=== PATIENT | male | born 1955 | race American Indian/Alaskan Native ===

== ENCOUNTER 2017-12-02 09:39 | Day surgery (SDC) | payer MEDICARE, MEDICAID ==
[2017-01-08 12:51] VITALS: BMI 33.6
[2017-12-02] MEDS ORDERED: Lidocaine 2% MPF (5 ml) Inj ONE (11:21)
[2017-12-02] MEDS ORDERED: Iodixanol 320 MG/ML 100 ML BOTTLE IV ONE (11:22)
[2017-12-02] MEDS ORDERED: Iodixanol 320 MG/ML 200 ML BOTTLE IV ONE (11:22)
[2017-12-02] MEDS ORDERED: Midazolam 2 MG/2 ML VIAL ONE ×4 (12:18→13:46)
--- NOTE | 2017-12-02 14:27 | PCM.SURG1 ---
Surgeon's Initial Post Op Note - Surgeon's Notes Surgeon: mendy Oracle Pl Sql Developer: 0 Type of Anesthesia: IV Sedation Anesthesia Administered By: álvaro arana Pre-Operative Diagnosis: ischemic uler right 5th toe Operative Findings: severe tibial disease. trifurcation occluded. diseased posterior tibial only open vessel to foot. very slow flow. perclose left groin. very steep bifurcation difficult to cross Post-Operative Diagnosis: same Operation Performed: aortofemoral angiogram via left groin. selective catherization of right femoral arery. balloon angioplasty of PT with 2.5 and 3.0 balloon. balloon angioplasty of TP trunk with 4 mm balloon Specimen/Specimens Removed: 0 Estimated Blood Loss: EBL {In ML}: 25 Blood Products Given: N/A Post-Op Condition: Good Date of Surgery/Procedure: 12/02/17 Time of Surgery/Procedure: 14:28
--- NOTE | 2017-12-05 07:07 | VAS ---
Copied To: Carlo Umanzor Jr., MD Attending MD: Carlo Umanzor Jr., MD DATE: 12/02/2017 PREOPERATIVE DIAGNOSIS: Ischemic ulceration, right fifth toe. PROCEDURE CARRIED OUT: Aortofemoral angiogram with selective catheterization of right femoral artery, balloon angioplasty of the posterior tibial artery using a 2.5 and 3 mm balloon, and then balloon angioplasty of the tibioperoneal trunk using a 4 mm balloon. SURGEON: Carlo Umanzor Jr., MD ASSISTANTS: None. ANESTHESIOLOGIST: Mr. Pool. ANESTHESIA: Local with sedation. INDICATIONS: A 62-year-old male with difficulty to get out of bed due to ischemic ulcer in the lateral aspect of the right fifth toe. OPERATIVE FINDINGS: 1. The aortic bifurcation was quite steep and difficult to cross. 2. The aorta, renal arteries, iliac arteries, common femoral arteries, and profunda femoris arteries were free of significant occlusive disease. We were able to film both legs down to the level of the knee and there was no significant occlusive disease on the either side. Below this, it was difficult to film both legs due to the patient's body habitus; because of this, we then carried out selective catheterization of the right side and there was severe tibial disease with occlusion of the tibial trifurcation. The anterior tibial was completely occluded. The perineal artery was completely occluded. The only vessel the posterior tibial artery which was occluded and severely diseased in its proximal segment and had severe 90% stenosis in its mid portion. Subsequent to the performance of the diagnostic arteriogram, a stiff-angled guidewire, an Amplatz wire, and a 7-[place]ian sheath were advanced over the aortic bifurcation and positioned in the proximal popliteal artery. Using road mapping technique, the lesion was then crossed. Initially, we planned to carry out an atherectomy, but due to the difficulty in crossing the bifurcation, we did not think that this will be able to be successfully brought over even inside the sheath; because of this, we then carried out balloon angioplasty using initially a 2.5 and a 3 mm, and then we ballooned the posterior tibial artery, and then we used a 4 mm balloon on the tibioperoneal trunk. Again, there was quite flow throughout the system, but in the end the pictures were excellent with good opacification and no evidence of any dissections or thrombus. We then terminated the procedure. Carlo Umanzor Jr., MD cc:
== END 2017-12-02 18:30 ==
LOC: C.SPRAD 09:39
PROVIDERS: ATTEND Surgery Vascular Surgery
DX: I70.235 Atherosclerosis of native arteries of right leg with ulceration of other part of foot (principal); L97.519 Non-pressure chronic ulcer of other part of right foot with unspecified severity
CPT/HCPCS: 36247; 37228; 75625; 75716; 75774; 82948; C1725; C1760; C1769; C1887; C1894; J1644; J2250; J3010; Q9966; Q9967

== ENCOUNTER 2018-07-18 08:50 | Outpatient (CLI) | payer MEDICARE, MEDICAID | END 2018-07-18 08:51 | disposition home or self-care (01) | LOC: C.CTH 08:50 | DX: I73.9 Peripheral vascular disease, unspecified (principal) ==

== ENCOUNTER 2018-08-09 08:27 | Day surgery (SDC) | payer MEDICARE, MEDICAID ==
[2018-08-09] MEDS ORDERED: Midazolam 2 MG/2 ML VIAL ONE ×2 (10:59→13:01)
[2018-08-09] MEDS ORDERED: Iodixanol 320 MG/ML 100 ML BOTTLE IV ONE (11:54)
[2018-08-09] MEDS ORDERED: Iodixanol 320 MG/ML 200 ML BOTTLE IV ONE (11:54)
[2018-08-09] MEDS ORDERED: Lidocaine 2% MPF (5 ml) Inj ONE (12:17)
--- NOTE | 2018-08-09 13:16 | PCM.SURG1 ---
Surgeon's Initial Post Op Note - Surgeon's Notes Surgeon: mendy Billet Worker: 0 Type of Anesthesia: IV Sedation Anesthesia Administered By: flor Pre-Operative Diagnosis: gangrene right heel Operative Findings: occluded tibial peroneal trunk on right. PT only vessel into foot Post-Operative Diagnosis: same Operation Performed: angiogram right femoral. atherectomy of tibail peroneal trun. balloon angioplasty of posterior tibial. perclose right groin Specimen/Specimens Removed: 0 Estimated Blood Loss: EBL {In ML}: 50 Blood Products Given: N/A Drains Used: No Drains Post-Op Condition: Good Date of Surgery/Procedure: 08/09/18 Time of Surgery/Procedure: 13:16
[2018-08-09 13:18] VITALS: BMI 25.2
--- NOTE | 2018-08-10 05:34 | VAS ---
DATE: 08/09/2018 OPERATIVE ANGIOGRAM REPORT PREOPERATIVE DIAGNOSIS: Gangrene, right heel. POSTOPERATIVE DIAGNOSIS: Gangrene, right heel. PROCEDURE CARRIED OUT: Right femoral angiogram with pathway atherectomy of the right tibioperoneal trunk and balloon angioplasty including drug-coated balloon angioplasty of the posterior tibial and tibioperoneal trunk. Perclose device closure of right groin. SURGEON: Carlo Umanzor Jr., MD. ASSISTANTS: None. ANESTHESIOLOGIST: Efren Nuñez CRNA. ANESTHESIA: Local with sedation. INDICATION: The patient is a man with previous stroke with gangrene of the heel, a previous intervention in November, now presents with recurrence of ulceration on the heel, dry gangrene. OPERATIVE FINDINGS: 1. Limited views were obtained from the groin down. This showed that the superficial femoral artery was widely patent down to the area of the trifurcation. The profunda femoris artery appeared patent but was not well visualized. Below this, the tibioperoneal trunk was occluded. The posterior tibial artery reconstituted via collaterals and continued into the foot. The anterior tibial artery was occluded soon after its origin in its straight portion and reconstituted distally in the foot. 2. Subsequent to the performance of the diagnostic arteriogram, a guidewire was advanced down to the level of the knee joint and a 7-Hungarian sheath was positioned here. Using road mapping techniques, we were able to cross the occlusion and placed 0.014 wire over which we performed the pathway atherectomy. Final results from this were good. This was touched up with 3 and then a 4-mm drug-coated balloon with excellent cosmetic results. Prior to this, the patient was heparinized, but after completion of this portion of the procedure, we attempted to recanalize the anterior tibial artery which was unsuccessful. We could only go through its initial portion and beyond this nothing despite of variety of wires and techniques. We then abandoned this and terminated the procedure. We deployed a Perclose device in the groin. OPERATION CARRIED OUT: 1. Right femoral angiogram. 2. Pathway atherectomy of the right tibioperoneal trunk and balloon angioplasty of the right tibioperoneal trunk and posterior tibial artery using a 3 and then subsequently a 4-mm drug-coated balloon. Carlo Umanzor Jr., MD cc: Sean Oliva MD
== END 2018-08-09 18:00 ==
LOC: C.SPRAD 08:27
PROVIDERS: ATTEND Surgery Vascular Surgery
DX: I96 Gangrene, not elsewhere classified (principal)
CPT/HCPCS: 36140; 36245; 37229; 75710; 76937; 82948; C1724; C1725; C1760; C1766; C1769; C1887; J0360; J1644; J2001; J2250; J3010; Q9966; Q9967